=== PATIENT | female | born 1970 | race Caucasian/White ===

== ENCOUNTER → 2019-05-31 11:18 | Outpatient (CLI) | payer BC ==
[2014-05-22 10:19] VITALS: BMI 22.7
[~2019-05-31 11:18] MED LIST: ESTRADERM 0.10.1 MG TD; IBUPROFEN600 MG PO; KLONOPIN1 MG PO; LEVSIN/ANASP0.125 MG PO; REQUIP1 MG PO; SYNTHROID50 MCG PO
[2019-05-31 13:07] LABS: BASOPHILS 0.2 % (0-2); EOSINOPHILS 0.5 % (0-7); HEMATOCRIT 39.4 % (36.0-48.0); HEMOGLOBIN 13.3 g/dL (12-16); IMMATURE GRANULOCYTES 0.3 % (0-5); LYMPHOCYTES 27.7 % (15-50); MCH 27.5 pg (26.0-34.0); MCHC 33.8 g/dL (31.0-37.0); MCV 81.4 fL (80.0-100.0); MEAN PLATELET VOLUME 9.4 fL (7.4-10.4); MONOCYTES 5.2 % (2-11); NEUTROPHILS 66.1 % (40-80); RBC 4.84 10x6/uL (4.00-5.40); RDW 14.9 % (11.5-14.5)
[2019-05-31 13:14] LABS: PLATELET COUNT 332 10x3/uL (130-400)
== END | disposition home or self-care (01) ==
LOC: D.RT 05-30 08:00 → D.RAD 05-30 09:00
PROVIDERS: ATTEND Internal Medicine Pulmonary Disease
DX: J45.909 Unspecified asthma, uncomplicated (principal)

== ENCOUNTER → 2019-06-01 08:54 | Outpatient (CLI) | payer BC ==
[2014-05-22 10:19] VITALS: BMI 22.7
== END | disposition home or self-care (01) ==
LOC: D.OPS 05-25 08:30 → D.MAMMO 05-25 15:45 → D.OPS 05-25 15:45
PROVIDERS: ATTEND Clinical Nurse Specialist Family Health
DX: E66.01 Morbid (severe) obesity due to excess calories (principal)

== ENCOUNTER 2019-06-05 05:25 | Day surgery (SDC) | payer BC ==
[~2019-06-05] VITALS: Ht 160 cm; Wt 98.2 kg
[2019-06-05 06:06] LABS: BASOPHILS 0.2 % (0-2); EOSINOPHILS 1.2 % (0-7); HEMATOCRIT 39.8 % (36.0-48.0); HEMOGLOBIN 13.1 g/dL (12-16); IMMATURE GRANULOCYTES 0.3 % (0-5); LYMPHOCYTES 24.2 % (15-50); MCH 27.1 pg (26.0-34.0); MCHC 32.9 g/dL (31.0-37.0); MCV 82.2 fL (80.0-100.0); MEAN PLATELET VOLUME 9.8 fL (7.4-10.4); MONOCYTES 5.5 % (2-11); NEUTROPHILS 68.6 % (40-80); PLATELET COUNT 348 10x3/uL (130-400); RBC 4.84 10x6/uL (4.00-5.40); RDW 14.9 % (11.5-14.5); WBC 11.2 10x3/uL (4.8-10.8)
[2019-06-05] MEDS ORDERED: ALEVE220 MG PO (06:12)
[2019-06-05] MEDS ORDERED: ARMOUR THYROID60 M1 (06:13)
[2019-06-05] MEDS ORDERED: ARMOUR THYROID60 M1 PO (06:14)
[2019-06-05] MEDS ORDERED: MAG 6464 MG (06:15)
[2019-06-05] MEDS ORDERED: SELENIUM (06:17)
[2019-06-05 06:21] LABS: ANION GAP 17.4 mmol/L (8-16); CREATININE - SERUM 1.4 mg/dL (0.6-1.3); POTASSIUM - SERUM 4.4 mmol/L (3.5-5.1)
[2019-06-05 06:32] VITALS: BP 141/83; Ht 160 cm; Wt 98.2 kg
--- NOTE | 2019-06-05 08:38 | NUR ---
0830 IV DC'D. CATHETER TIP INTACT. NO BLEEDING AT SITE. BANDAID APPLIED.
--- NOTE | 2019-06-05 08:55 | NUR ---
0895 DR FRANCES HERE TO COMMUNICATE WITH PT FINDINGS FROM EGD. QUESTIONS ANSWERED TO PATIENT.
== END 2019-06-05 09:02 | disposition home or self-care (01) ==
LOC: D.OPS 05:25
PROVIDERS: Anesthesiology; ATTEND Surgery
DX: E66.01 Morbid (severe) obesity due to excess calories (principal); Z68.38 Body mass index [BMI] 38.0-38.9, adult; K21.9 Gastro-esophageal reflux disease without esophagitis; E03.9 Hypothyroidism, unspecified; Z71.3 Dietary counseling and surveillance; J45.909 Unspecified asthma, uncomplicated; R10.9 Unspecified abdominal pain; T78.49XD Other allergy, subsequent encounter; J20.9 Acute bronchitis, unspecified; Z01.818 Encounter for other preprocedural examination

== ENCOUNTER 2020-01-22 02:09 | Emergency (ER) | payer BC ==
[~2020-01-22] VITALS: Ht 160 cm; Wt 77.3 kg
[~2020-01-22 02:09] MED LIST changes: +ALBUTEROL SULF8.5 GM INH; +ALEVE220 MG PO; +ARMOUR THYROID60 M1; +ARMOUR THYROID60 M1 PO; +BREO ELLIPTA 21 EACH; +CYCLOBENZAPRINE10 MG PO; +DILAUDID4 MG PO; +ESTRACE2 MG PO; +MAG 6464 MG; +MAGNESIUM OXID250 MG PO; +NP THYROID90 MG PO; -REQUIP1 MG PO; +ROPINIROLE HCL2 MG PO; +SELENIUM PO; +SINEQUAN50 MG PO; +SINGULAIR10 MG PO; +ZOFRAN ODT4 MG/UDTAB PO
[2020-01-22 02:13] VITALS: Ht 160 cm; Wt 77.3 kg
[2020-01-22] MEDS ORDERED: ESTRACE 0.0142.5 GM PO (02:17)
[2020-01-22 02:38] LABS: ANION GAP 10.8 mmol/L (8-16); CALCIUM 9.8 mg/dL (8.5-10.1); CARBON DIOXIDE 24.1 mmol/L (21.0-32.0); CREATININE - SERUM 1.2 mg/dL (0.6-1.3); POTASSIUM - SERUM 3.9 mmol/L (3.5-5.1)
[2020-01-22 02:46] LABS: ALBUMIN 3.4 g/dL (3.4-5.0); BILIRUBIN - TOTAL 0.22 mg/dL (0.2-1.3); PROTEIN - SERUM 7.8 g/dL (6.4-8.2)
[2020-01-22 02:51] LABS: BASOPHILS 0.1 % (0-2); EOSINOPHILS 0 % (0-7); HEMATOCRIT 43.2 % (36.0-48.0); IMMATURE GRANULOCYTES 0.2 % (0-5); LYMPHOCYTES 15.1 % (15-50); MCH 26.7 pg (26.0-34.0); MCHC 32.4 g/dL (31.0-37.0); MCV 82.4 fL (80.0-100.0); MEAN PLATELET VOLUME 10.1 fL (7.4-10.4); MONOCYTES 5.6 % (2-11); PLATELET COUNT 303 10x3/uL (130-400); RBC 5.24 10x6/uL (4.00-5.40); RDW 15.1 % (11.5-14.5); WBC 11.1 10x3/uL (4.8-10.8)
[2020-01-22 03:07] LABS: HCG URINE NEGATIVE (NEGATIVE)
[2020-01-22 03:09] LABS: BILIRUBIN NEGATIVE (NEGATIVE); KETONE NEGATIVE (NEGATIVE); NITRITE NEGATIVE (NEGATIVE); UROBILINOGEN NORMAL mg/dL (< 2)
[2020-01-22 03:10] LABS: BACTERIA FEW /HPF (NONE SEEN); EPITHELIAL CELLS 0-5 /hpf (0-5); WHITE CELLS - URINE 0-5 HPF (0-4)
[2020-01-22] MEDS ORDERED: HYDROCODON-ACE1 EAC7 PO (04:05)
[2020-01-22] MEDS ORDERED: ZOFRAN ODT4 MG/UDTAB PO (04:05)
[2020-01-22 05:29] VITALS: BP 121/71
== END 2020-01-22 05:29 | disposition home or self-care (01) ==
LOC: D.ER 02:09
PROVIDERS: Emergency Medicine
DX: N20.1 Calculus of ureter (principal); E03.9 Hypothyroidism, unspecified; J45.909 Unspecified asthma, uncomplicated; K21.9 Gastro-esophageal reflux disease without esophagitis